=== PATIENT | male | born 1975 | race Caucasian/White ===

== ENCOUNTER 2022-05-19 06:58 | Outpatient (CLI) | payer OTHER, SELFPAY ==
--- NOTE | ~2022-05-19 | MR_ITS ---
EXAMINATION: MR brain/brain stem wo/w con DATE: 05/19/2022 09:00 INDICATION: Sided headaches TECHNIQUE: Magnetic resonance imaging (MRI) of the brain and brainstem was performed without and with 18 mL Multihance intravenous contrast. Sequences included sagittal and axial T1-weighted SE, axial d iffusion-weighted FS SE, axial T2*-weighted GRE, axial 3D SWAN, axial T2-weighted FLAIR, and axial T2 -weighted FSE. Postcontrast axial and coronal T1-weighted SE was obtained. Apparent diffusion coeffic ient (ADC) maps were created. COMPARISON: None. FINDINGS: There are no areas of restricted diffusion to suggest acute infarction. No intracranial hemorrhage or abnormal intracranial mass lesion. Single focus of increased white matter T2 hyperintensity in the r ight frontal lobe which is within normal limits for age. There are no intraparenchymal signal abnorma lities seen on the other pulse sequences. The ventricles are symmetric and normal in size. There are no abnormal extra-axial fluid collections. Flow voids are seen in the cerebral arteries on the T2-deena ghted sequences consistent with their expected patency. Visualized orbits and soft tissues are unrema rkable. There are no areas of abnormal enhancement on the post contrast images. IMPRESSION: 1. Single focus of nonspecific increased white matter T2 signal in the right frontal lobe which is wi thin normal limits for age. No acute intracranial process. Reviewed, dictated and finalized at location A. IMPRESSION: 1. Single focus of nonspecific increased white matter T2 signal in the right fr ontal lobe which is within normal limits for age. No acute intracranial process .
[2022-05-19 07:29] LABS: Estimated Glomerular Filt Rate > 60
== END 2022-05-19 06:59 | disposition home or self-care (01) ==
LOC: CHSIMG 07:03
PROVIDERS: PCP Physician Assistant
DX: R51.9 Headache, unspecified (principal)
CPT/HCPCS: 70553; A9577

== ENCOUNTER 2022-10-07 21:29 | Emergency (ER) | payer OTHER, SELFPAY ==
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
[2022-10-07 21:30] VITALS: BP 153/81; PULSE 98; RESP 18; TEMP 36.3; O2SAT 97
[2022-10-07 21:41] LABS: Glucose Point of Care 130 mg/dl (65-105)
--- NOTE | 2022-10-07 21:58 | ECG_ITS ---
Measurements Intervals [place] Rate: 100 P: 22 SD: 155 QRS: 74 QRSD: 114 T: 49 QT: 347 QTc: 449 Interpretive Statements SINUS TACHYCARDIA INCOMPLETE RIGHT BUNDLE BRANCH BLOCK [90+ ms QRS DURATION, TERMINAL R IN V1/V2, 40+ ms S IN I/aVL/V4/V5/V6] NONSPECIFIC ST CHANGES NO PREVIOUS ECG AVAILABLE FOR COMPARISON Electronically Signed On 10-08-2022 20:07:03 [facility]NER by Ines Presley M.D.
[2022-10-07 22:32] LABS: Basophils Absolute Auto 0.12 K/mm3 (0.00-0.10); Basophils Percent Auto 0.8 % (0.0-1.0); Eosinophils Absolute Auto 0.28 K/mm3 (0.02-0.50); Hematocrit 51.5 % (40.0-54.0); Hemoglobin 17.3 g/dL (14.0-18.0); Immature Granulocyte Absolute 0.17 K/mm3 (0.00-0.00); Immature Granulocyte Percent A 1.2 % (0.0-0.0); Lymphocytes Absolute Auto 3.36 K/mm3 (1.10-4.50); Lymphocytes Percent Auto 23.7 % (18.0-42.0); Mean Corpuscular HGB Conc 33.6 g/dL (32.0-36.0); Mean Corpuscular Volume 95.2 fL (78.0-102.0); Mean Platelet Volume 9.6 fl (8.7-11.0); Monocytes Percent Auto 4.9 % (2.0-11.0); Neutrophils Absolute Auto 9.6 K/mm3 (1.7-7.2); Neutrophils Percent Auto 67.4 % (50.0-70.0); Platelet Count Result 346 K/mm3 (150-420); Red Blood Count 5.41 M/mm3 (4.70-6.10); Red Cell Distribution Width 12.7 % (11.6-14.4); White Blood Count 14.2 K/mm3 (4.8-10.8)
[2022-10-07 22:36] LABS: Add Urine Microscopic? YES; Appearance Urine Clear (Clear); Bilirubin Urine Negative (Negative); Blood Urine Trace-Intact (Negative); Color Urine Light Yellow (Yellow); Glucose Urine UA Negative (Negative); Ketones Urine Negative (Negative); Leukocyte Esterase Ur Negative (Negative); Nitrate Urine Negative (Negative); Protein Urine Negative (Negative); Specific Grav Ur <= 1.005 (1.010-1.020); Urobilinogen Urine 0.2 mg/dL (0.2-1.0)
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
[2022-10-07 22:41] LABS: Bacteria Urine Trace /hpf; RBC Urine 0-2 /hpf (0-2); Squamous Epithelial Cell Urine Few /hpf (Few); WBC Urine 0-3 /hpf (0-3)
[2022-10-07 22:43] LABS: Amphetamine Screen Urine Negative (Negative); Barbiturate Screen Urine Negative (Negative); Benzodiazepines Screen Urine Negative (Negative); Cannabinoid Screen Urine Positive (Negative); Cocaine Screen Urine Negative (Negative); Methadone Screen Urine Negative (Negative); Opiate Screen Urine Negative (Negative); Phencyclidine Screen Urine Negative (Negative)
[2022-10-07 22:56] LABS: Alanine Aminotransferase 29 U/L (16-63); Albumin Level 4.5 g/dL (3.4-5.0); Alkaline Phosphatase 82 U/L (46-116); Anion Gap 9 mmol/L (8-16); Aspartate Amino Transferase 24 U/L (15-37); Bilirubin,Total 0.2 mg/dL (0.00-1.00); Blood Urea Nitrogen 15 mg/dL (7-18); Calcium 9.7 mg/dL (8.5-10.1); Carbon Dioxide 29 mmol/L (21-32); Chloride 103 mmol/L (98-108); Estimated CRCL calculation 73 ml/min; Estimated Glomerular Filt Rate > 60; Glucose 116 mg/dL (70-99); Osmolality Calculated 293 mOsm/kg (285-295); Potassium 3.6 mmol/L (3.5-5.1); Sodium 141 mmol/L (136-145); Total Protein 8.8 g/dL (6.4-8.2); Troponin I 7.1 ng/L (0.00-60.4)
[2022-10-07 23:06] LABS: Ethanol 338 mg/dL (0-6)
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
[2022-10-07 23:29] LABS: Lactic Acid Reflex 2.1 mmol/L (0.4-2.0)
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
[2022-10-08 01:29] LABS: Reflex Lactic Acid Yes or No Add Lactic
== END 2022-10-07 22:54 | disposition left against medical advice (07) ==
PROVIDERS: Emergency Provider Emergency Medicine; PCP Physician Assistant
DX: R78.0 Finding of alcohol in blood (principal); V89.2XXA Person injured in unspecified motor-vehicle accident, traffic, initial encounter
CPT/HCPCS: 36415; 70450; 71250; 74176; 80053; 80307; 81001; 82948; 83605; 84484; 85025; 93005; 99284

== ENCOUNTER 2024-03-08 | Observation (INO) | payer OTHER, SELFPAY ==
[2024-03-07 23:58] VITALS: BP 108/79; PULSE 71; RESP 12; O2SAT 99
[2024-03-08] VITALS (23 sets, daily range): BP systolic 92–136; BP diastolic 48–93; PULSE 66–86; RESP 16–26; TEMP 36.2–36.6; O2SAT 94–100; BMI 27.7
--- NOTE | ~2024-03-08 | MR_ITS ---
MRI of the brain Clinical History: Tremor Technique: Axial and sagittal T1-weighted images were acquired. These were followed by axial T2-weigh chela, diffusion weighted, gradient, and FLAIR images. Following intravenous administration of 18 cc Mu ltiHance gadolinium, T1-weighted fat-sat imaging was performed in the axial and coronal planes. COMPARISON: 05/19/2022 Findings: There is no abnormal signal in the brain parenchyma. No acute infarct, intracranial hemorrh age, or mass lesion. Ventricles and subarachnoid spaces are unremarkable. Orbits are unremarkable. Paranasal sinuses and m astoid air cells are clear. Major intracranial flow voids are intact. Sagittal midline structures are intact. No abnormal postcontrast enhancement identified. IMPRESSION: No significant abnormality seen. Reviewed, dictated and finalized at location .
--- NOTE | ~2024-03-08 | CT_ITS ---
CT of the Abdomen and Pelvis: Indication: Abdominal distention Technique: 2.5 mm axial scans were obtained through the abdomen and pelvis following intravenous adm inistration of 100 cc of Omnipaque 350. Dose reduction technique was used on this scan by utilizing a utomated exposure control and iterative reconstruction technique. The dose-length product (DLP) was 1 633.22 mGy-cm. COMPARISON: 10/07/2022 Findings: Scans through the lung bases are unremarkable. The liver, spleen, pancreas, gallbladder, adrenals and left kidney are within normal limits. Stable f at-containing right renal mass, compatible with angiomyolipoma, measuring 3.8 cm in diameter. There a re atherosclerotic calcifications of the aorta. No lymphadenopathy. No bowel obstruction or bowel wall thickening. There is no evidence to suggest acute appendicitis. Sm all fat-containing umbilical hernia present. Images through the pelvis were performed. Urinary bladder unremarkable. No pelvic mass seen. No ascit es. Impression: No acute abnormality. Small fat-containing inguinal hernia. Stable right renal angiomyolipoma. Reviewed, dictated and finalized at [facility]. Impression: No acute abnormality. Small fat-containing inguinal hernia. Stable right renal angiomyolipoma.
--- NOTE | ~2024-03-08 | CT_ITS ---
Noncontrast CT scan of the cervical spine Technique: Multiple contiguous axial [address] images of the cervical spine were obtained and rec onstructed in 2D sagittal and coronal planes on the acquisition scanner. Dose reduction technique was used on this scan by utilizing automated exposure control, adjustment of the mA and/or kV according to patient size. The dose-length product (DLP) was 517.22 mGy-cm. Clinical History: Pain Findings: No fractures or dislocations. There is straightening of normal cervical lordosis. There is advanced degenerative disc narrowing at C6-C7. There is mild to moderate degenerative disc narrowing at the remainder of the cervical spine. Probable mild bilateral neural foraminal narrowing at C3-C4 with mild facet arthropathy bilaterally. There is bilateral neural foraminal narrowing at C5-C6. Ther e is right neural foraminal narrowing at C6-C7. No prevertebral soft tissue swelling. Impression: No fracture or subluxation of the cervical spine. Degenerative change, as above. Reviewed, dictated and finalized at [facility]. Impression: No fracture or subluxation of the cervical spine. Degenerative change, as above.
--- NOTE | ~2024-03-08 | CT_ITS ---
Non-contrast Head CT History: Tremor COMPARISON: 10/07/2022 Technique: Axial non-contrast imaging of the brain was performed. Dose reduction technique was used on this scan by utilizing automated exposure control and iterative reconstruction technique. The dose -length product (DLP) was 605.33 mGy-cm. Findings: There is no evidence of intracranial hemorrhage, mass lesion, or acute infarct. Brain par enchyma appears normal. The ventricles and subarachnoid spaces are normal in size. The calvarium ap pears normal. The visualized paranasal sinuses and mastoid air cells are clear. Impression: No significant abnormality seen. Reviewed, dictated and finalized at location . Impression: No significant abnormality seen.
--- NOTE | ~2024-03-08 | CT_ITS ---
Noncontrast CT scan of the thoracic spine CLINICAL HISTORY: Lower extremity weakness TECHNIQUE: Axial noncontrast imaging of the thoracic spine was performed. Sagittal and coronal reform atted images were constructed. Dose reduction technique was used on this scan by utilizing automated exposure control and iterative reconstruction technique. The dose-length product (DLP) was 1536.21 mG y-cm. FINDINGS: There is no fracture or subluxation of the thoracic spine. Vertebral bodies maintain normal height and alignment. There is moderate to advanced degenerative disc narrowing at T10-T11 and T11-T 12. There is minimal degenerative disc changes in the remainder of the thoracic spine. No definite disc bulge or herniation seen. No definite spinal canal stenosis/cord compression. Paravertebral soft tissues are unremarkable. Impression: No acute abnormality. Mild degenerative spondylosis, as above. Reviewed, dictated and finalized at [facility]. Impression: No acute abnormality. Mild degenerative spondylosis, as above.
--- NOTE | ~2024-03-08 | XR_ITS ---
Portable chest x-ray Comparison: None Clinical History: Tremor Findings: Lungs are clear, without focal consolidation or pleural effusion. Cardiomediastinal silho uette is unremarkable. Bones and soft tissues are unremarkable. Impression: Normal chest. Reviewed, dictated and finalized at location M. Impression: Normal chest.
--- NOTE | 2024-03-08 00:03 | ECG_ITS ---
SEE SCANNED COPY FOR CONFIRMED REPORT MTDD
[2024-03-08 00:11] LABS: Glucose Point of Care 127 mg/dl (65-105)
[2024-03-08 00:20] LABS: Basophils Absolute Auto 0.1 K/mm3 (0.0-0.1); Eosinophils Absolute Auto 0.7 K/mm3 (0-0.3); Eosinophils Percent Auto 6.8 % (0-4.4); Hematocrit 38.1 % (42.0-52.0); Hemoglobin 12.5 g/dL (14.0-18.0); Immature Granulocyte Absolute 0.12 K/mm3 (0.00-0.031); Immature Granulocyte Percent A 1.1 % (0-0.5); Lymphocytes Absolute Auto 2.35 K/mm3 (0.9-3.2); Lymphocytes Percent Auto 21.8 % (18.3-44.2); Mean Corpuscular HGB Conc 32.8 g/dl (32-36); Mean Corpuscular Hemoglobin 27.5 pg (26-34); Mean Corpuscular Volume 83.9 fl (80-100); Mean Platelet Volume 9.4 fl (7.4-10.4); Monocytes Absolute Auto 0.9 K/mm3 (0.1-0.6); Monocytes Percent Auto 8.3 % (2.6-8.5); Neutrophils Absolute Auto 6.6 K/mm3 (1.3-6.7); Platelet Count Result 294 k/mm3 (150-375); Red Blood Count 4.54 M/mm3 (4.6-6.20); Red Cell Distribution Width 14.6 % (11.5-14.5); White Blood Count 10.8 K/mm3 (4.5-10.0)
[2024-03-08 00:30] LABS: INR 0.9
[2024-03-08 00:32] LABS: Partial Thromboplastin Time 28.7 Seconds (22.3-36.8)
[2024-03-08 00:33] LABS: Alanine Aminotransferase 22 U/L (6-50); Albumin Level 4.2 g/dL (3.5-5.1); Alkaline Phosphatase 83 U/L (38-126); Anion Gap 7 mmol/L (4-12); Aspartate Amino Transferase 56 U/L (17-59); Bilirubin,Total 0.5 mg/dL (0.2-1.3); Blood Urea Nitrogen 22 mg/dL (9-20); Calcium 9.6 mg/dL (8.4-10.2); Carbon Dioxide 26 mmol/L (22-30); Chloride 103 mmol/L (98-107); Estimated CRCL calculation 84 ml/min; Estimated Glomerular Filt Rate > 60; Glucose 109 mg/dL (65-110); Potassium 4.4 mmol/L (3.4-5.0); Sodium 136 mmol/L (137-145)
[2024-03-08 00:40] LABS: Troponin I < 0.012 ng/mL (0.000-0.034)
[2024-03-08 00:51] LABS: Creatine Kinase 1427 U/L (55-170); Lipase 85 U/L (23-300); Phosphorus 4.6 mg/dL (2.5-4.5)
[2024-03-08] MEDS: SODIUM CHLORIDE 0.9% IV 1,000 ML 999 ML IV CONT (00:55)
[2024-03-08 01:04] LABS: Ethanol < 10 mg/dL (<10)
[2024-03-08 02:04] LABS: Appearance Urine Clear (Clear); Bilirubin Urine Negative (Negative); Blood Urine Negative (Negative); Color Urine Yellow (Yellow); Glucose Urine UA Negative (Negative); Ketones Urine Negative (Negative); Leukocyte Esterase Ur Negative LEU/UL (Negative); Nitrate Urine Negative (Negative); Protein Urine Negative (Negative); Specific Grav Ur 1.021 (1.001-1.035); Urobilinogen Urine 0.2 mg/dL (<2.0); pH Urine 5.5 (5.0-9.0)
[2024-03-08 02:05] LABS: Add Urine Microscopic? NO
[2024-03-08 02:16] LABS: Lactic Acid Reflex 1.6 mmol/L (0.7-2.0)
[2024-03-08 02:22] LABS: Amphetamine Screen Urine Negative (Negative); Barbiturate Screen Urine Negative (Negative); Benzodiazepines Screen Urine Negative (Negative); Cannabinoid Screen Urine Negative (Negative); Cocaine Screen Urine Negative (Negative); Methadone Screen Urine Negative (Negative); Opiate Screen Urine Negative (Negative); Phencyclidine Screen Urine Negative (Negative)
[2024-03-08 02:30] LABS: Ammonia < 9 umol/L (9-30)
[2024-03-08 02:34] LABS: Influenza A QL RT-PCR Negative (Negative); Influenza B QL RT-PCR Negative (Negative); RSV RNA, RT-PCR Negative (Negative); SARS-CoV-2 RNA PCR Negative (Negative)
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
--- NOTE | 2024-03-08 04:17 | PC.NURSE ---
[place] poison control called at the request of EDP Dr. Scott. Per [place] poison control s/s of Seroquel withdraw are N/V, insomnia, tachycardia, and rare signs dyskenisa.
[2024-03-08 05:21] LABS: Folic Acid 5.2 ng/mL (2.76->20)
[2024-03-08] MEDS: LACTATED RINGERS 1,000 ML 125 ML IV CONT ×2 (06:14→15:12)
--- NOTE | 2024-03-08 07:01 | ADMGEN ---
This patient, Gerardo Sarmiento, was admitted to [facility] Surg Room 315-02. Patient/family oriented to hospital policies and general routines including ID bracelet, bed and alarms, visiting hours, pain management, procedures, bathroom and other care routines, personal items, smoking policy, room service/diet, and visiting hours. Information on how to activate the Rapid Response Team has been discussed. Patient/Family are encouraged to report perceived risks to care and to ask questions if they do not understand what they are told or what they should do.
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
[2024-03-08] MEDS: CALCIUM CARBONATE (TUMS) 500 MG (200 MG ELEMENTAL) 400 MG PO (21:55)
[2024-03-09] VITALS (11 sets, daily range): BP systolic 98–157; BP diastolic 80–106; PULSE 72–105; RESP 16–17; TEMP 36.3–36.6; O2SAT 92–96
[2024-03-09 06:37] LABS: Basophils Absolute Auto 0.1 K/mm3 (0.0-0.1); Basophils Percent Auto 1.1 % (0.2-1.2); Eosinophils Absolute Auto 0.6 K/mm3 (0-0.3); Eosinophils Percent Auto 8.5 % (0-4.4); Hematocrit 37.5 % (42.0-52.0); Hemoglobin 12.3 g/dL (14.0-18.0); Immature Granulocyte Absolute 0.08 K/mm3 (0.00-0.031); Immature Granulocyte Percent A 1.1 % (0-0.5); Lymphocytes Absolute Auto 2.07 K/mm3 (0.9-3.2); Lymphocytes Percent Auto 27.9 % (18.3-44.2); Mean Corpuscular HGB Conc 32.8 g/dl (32-36); Mean Corpuscular Hemoglobin 27.3 pg (26-34); Mean Corpuscular Volume 83.3 fl (80-100); Mean Platelet Volume 9.3 fl (7.4-10.4); Monocytes Absolute Auto 0.6 K/mm3 (0.1-0.6); Monocytes Percent Auto 8.5 % (2.6-8.5); Neutrophils Absolute Auto 3.9 K/mm3 (1.3-6.7); Neutrophils Percent Auto 52.9 % (45.5-73.1); Platelet Count Result 258 k/mm3 (150-375); Red Cell Distribution Width 14.3 % (11.5-14.5); White Blood Count 7.4 K/mm3 (4.5-10.0)
[2024-03-09 06:46] LABS: Alanine Aminotransferase 21 U/L (6-50); Albumin Level 4.1 g/dL (3.5-5.1); Alkaline Phosphatase 95 U/L (38-126); Anion Gap 6 mmol/L (4-12); Aspartate Amino Transferase 40 U/L (17-59); Bilirubin,Total 0.5 mg/dL (0.2-1.3); Blood Urea Nitrogen 17 mg/dL (9-20); Calcium 9.9 mg/dL (8.4-10.2); Carbon Dioxide 26 mmol/L (22-30); Chloride 104 mmol/L (98-107); Creatine Kinase 709 U/L (55-170); Estimated CRCL calculation 84 ml/min; Estimated Glomerular Filt Rate > 60; Glucose 87 mg/dL (65-110); Magnesium 1.9 mg/dL (1.6-2.3); Potassium 3.9 mmol/L (3.4-5.0); Sodium 136 mmol/L (137-145)
[2024-03-09] MEDS: PANTOPRAZOLE 40 MG TABLET PO (08:26)
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
--- NOTE | 2024-03-09 15:00 | PM.DS ---
DS: Admitting Diagnosis Discharge Date March 09, 2024 Admitting Diagnosis Tremor DS: Discharge Diagnosis Discharge Diagnosis (1) Weakness: Code(s): R53.1 - Weakness Status: Acute (2) Tremor: Code(s): R25.1 - Tremor, unspecified Status: Acute (3) Orthostatic hypotension: Code(s): I95.1 - Orthostatic hypotension Status: Acute DS: Summary Hospital Course Hospital Course: 48-year-old male with a history of alcohol abuse now sober for 11 months, hypertension, insomnia presents for evaluation of tremor. Patient reports that has been there for some time but got much worse in the past few weeks. Became so bad he could not walk and therefore EMS was called. He was provided IV fluid resuscitation and his tremor resolved. Orthostatic blood pressures even after fluid resuscitation were positive. Abdominal binder was placed his orthostatic vitals were subsequently normal. Patient is discharged on abdominal binder and is advised that a waist high compression stockings can also be used. He has been educated on the Behavioral modifications he can take prevent orthostatic hypotension. His metoprolol succinate for hypertension was stopped. He is advised to take his blood pressures and report to his PCP results for further management. He is advised if his blood pressure is elevated too high to contact the ER or his PCP. There was a small concern for serotonin syndrome although this is likely not the case. None the less trazodone was also stopped. He also takes gabapentin and amitriptyline and recently stopped taking Seroquel 5 days ago. An MRI of the brain was negative for any acute abnormalities. All of his concerns and questions were answered to satisfaction. Was in understanding agreement to the above plan. Full code during admission. Time Spent with Patient Time attestation: Total time spent providing and/or coordinating discharge services: Exam Const: General: cooperative and no acute distress Resp: Effort & Inspection: normal respiratory effort Auscultation: clear to auscultation bilaterally Cardio: Rate: regular rate Rhythm: regular rhythm Heart sounds: S1 normal heart sound present and S2 normal heart sound present GI: GI Palp: No abdominal tenderness Auscultation: normal bowel sounds DS: Data Data Completed and Pending Labs on day of discharge: Labs from last 24 hours 03/09/24 06:11 WBC 7.4 RBC 4.50 L Hgb 12.3 L Hct 37.5 L MCV 83.3 MCH 27.3 MCHC 32.8 RDW 14.3 Plt Count 258 MPV 9.3 Immature Gran % (Auto) 1.1 H Neut % (Auto) 52.9 Lymph % (Auto) 27.9 [place] % (Auto) 8.5 Eos % (Auto) 8.5 H Baso % (Auto) 1.1 Lymph # (Auto) 2.07 [place] # (Auto) 0.6 Eos # (Auto) 0.6 H Baso # (Auto) 0.1 Abs Immat Gran (auto) 0.08 H Absolute Neuts (auto) 3.9 Absolute Nucleated RBC 0.000 Nucleated RBC % 0.0 Sodium 136 L Potassium 3.9 Chloride 104 Carbon Dioxide 26 Anion Gap 6 BUN 17 Creatinine 1.00 Estim Creat Clear Calc 84 Estimated GFR > 60 Glucose 87 Calcium 9.9 Magnesium 1.9 Total Bilirubin 0.5 AST 40 ALT 21 Alkaline Phosphatase 95 Total Creatine Kinase 709 H Total Protein 7.0 Albumin 4.1 Procalcitonin 0.0 Preliminary micro results at discharge 03/08/24 02:10 Blood Culture - Preliminary Blood 03/08/24 01:34 Blood Culture - Preliminary Blood Discharge Plan Discharge Attending physician on discharge: Alesia Tello Consulting providers: Huber Daly Discharging Clinician: Alesia Tello Patient Disposition: Home, Self-Care Activity: may shower Diet: as tolerated Discharge Instructions: Continue using the abdominal binder. Continue to monitor your blood pressure and report high pressures to your primary care provider. Return to primary care provider within 1 week to follow-up on blood pressure, orthostatic hypotension, and other issues. Patient Instructions: Antibiotic Form, How to Sto
== END 2024-03-09 15:35 | disposition home or self-care (01) ==
LOC: ANHED 06:01 → ANH3MEDSUR 06:56
PROVIDERS: Admitting Provider Internal Medicine; Emergency Provider Emergency Medicine; PCP Physician Assistant; Visit Provider General Practice
DX: R25.1 Tremor, unspecified (principal); I95.1 Orthostatic hypotension; R53.1 Weakness; I10 Essential (primary) hypertension; G47.00 Insomnia, unspecified; F17.210 Nicotine dependence, cigarettes, uncomplicated; Z20.822 Contact with and (suspected) exposure to COVID-19
CPT/HCPCS: 36415; 70450; 70553; 71045; 72125; 72128; 74177; 80053; 80307; 81003; 82140; 82550; 82607; 82746; 82948; 83605; 83690; 83735; 84100; 84145; 84484; 85025; 85610; 85730; 87040; 87637; 93005; 96360; 96361; 97161; 97165; 99285; A9270; A9577; G0378; J7030; J7120; Q9967

== ENCOUNTER 2024-09-19 19:00 | Observation (INO) | payer OTHER, SELFPAY ==
--- NOTE | ~2024-09-19 | CT_ITS ---
EXAMINATION: CTA chest PE abdomen pel DATE: 09/19/2024 23:36 INDICATION: shortness of breath, low BP TECHNIQUE: Computed tomography angiography (CTA) of the chest was performed with 100 mL Omnipaque-350 intravenous contrast timed to evaluate the pulmonary arteries, followed by portal venous phase imagi ng of the abdomen and pelvis. Coronal maximum intensity projection 3D-reconstructions were created by the technologist. The dose-length product (DLP) was 895.24 mGy-cm. Automated exposure control and it erative reconstruction technique were employed. COMPARISON: 03/08/2024 10 10/07/2022. FINDINGS: CHEST: Lung parenchyma and airways: Scattered calcified granulomas. Fissural node in the left major fissure. Minimal scattered centrilobular nodular groundglass opacities. Patent airways. Pleura: Unremarkable. Thoracic inlet, axillae and chest wall: No thyroid or soft tissue mass. Thoracic aorta: No significant dilation. No dissection. Mediastinum: Moderate hiatal hernia. Heart and pericardium: Normal. Coronary artery calcifications: Mild. Thoracic bones: No acute osseous finding. Pulmonary arteries: Study quality: Adequate. No pulmonary emboli detected. ABDOMEN/PELVIS: Liver: Normal. Biliary/Gallbladder: Gallbladder is normal. No bile duct dilation. Pancreas: No mass or duct dilation. Spleen: Normal. Adrenals:No mass. Kidneys: 4.1 cm right renal angiomyolipoma. No suspicious mass, obstructing stone, or hydronephrosis. GI tract: No small or large bowel dilation. Normal appendix. Diverticulosis without diverticulitis. Mesentery/Peritoneum: No ascites, mass, or free air. Retroperitoneum: No mass. Pelvis: Unremarkable urinary bladder. Mild prostate enlargement. Slight asymmetry of the left seminal vesicle, stable since 2016. Soft Tissues: Small uncomplicated fat-containing umbilical and bilateral inguinal hernias. Abdominopelvic bones: No acute osseous finding. IMPRESSION: No CT evidence of acute pulmonary embolus. Pulmonary opacities may reflect mild hypersensitivity pneumonitis, respiratory bronchiolitis in smoke rs, or infectious airways disease. No acute abdominopelvic process detected. 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 No significant interval change or evidence of active hemorrhage. G iven the size and risk of spontaneous hemorrhage, consider urologic consultation if not already perfo rmed. Reviewed, dictated and finalized at location [facility] IMPRESSION: No CT evidence of acute pulmonary embolus. Pulmonary opacities may reflect mild hypersensitivity pneumonitis, respiratory bronchiolitis in smokers, or infectious airways disease. No acute abdominopelvic process detected. 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 No significant interval change or evidence o f active hemorrhage. Given the size and risk of spontaneous hemorrhage, conside r urologic consultation if not already performed.
[2024-09-19 19:03] VITALS: PULSE 67; RESP 22; TEMP 36.4; O2SAT 99
[2024-09-19] MEDS: ONDANSETRON HCL ODT 4 MG TABLET PO (19:12)
[2024-09-19 19:13] VITALS: BP 104/68
--- NOTE | 2024-09-19 19:15 | ECG_ITS ---
Test Date: 2024-09-19 20:15:39 Measurements Intervals [place] Rate: 128 P: 230 MI: 200 QRS: 236 QRSD: 102 T: 63 QT: 356 QTc: 521 Interpretive Statements SINUS TACHYCARDIA RIGHT AXIS DEVIATION DELAYED PRECORDIAL R/S TRANSITION BASELINE ARTIFACT- I, II, III, AVR, AVL, AVF, V4-V6 ABNORMAL ECG No previous ECG available for comparison Electronically Signed On 09-20-2024 06:10:52 [employer] by Blade Chin D.O.
--- NOTE | 2024-09-19 19:17 | ED.SOB ---
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 Beckham APRN - Last Filed: 09/19/24 19:23> Patient Disposition: Still a Patient <America Beckham APRN - Last Filed: 09/19/24 19:23> Condition: Improved <America Beckham APRN - Last Filed: 09/19/24 19:23> Prescriptions: No Action amitriptyline 50 mg tablet 100 mg PO HS trazodone 100 mg tablet 200 mg PO DAILY Hold Instructions: Hold this for now. Interaction with amitriptyline. Discussed use of this with your primary care provider. gabapentin 300 mg capsule 300 mg PO TID metoprolol succinate 100 mg tablet extended release 24 hr 150 mg PO DAILY Hold Instructions: Hold this for now. This medication can cause orthostatic hypotension which you were observed to have in the hospital. <America Beckham APRN - Last Filed: 09/19/24 19:23> Follow-up/Referrals: Jill,MELISSA Moody [Primary Care Provider] - <America Beckham, TIM - Last Filed: 09/19/24 19:23>
[2024-09-19 20:41] LABS: Albumin Level 5.6 g/dL (3.5-5.1); Alkaline Phosphatase 129 U/L (38-126); Anion Gap 24 mmol/L (4-12); Aspartate Amino Transferase 39 U/L (17-59); Bilirubin,Total 1.6 mg/dL (0.2-1.3); Blood Urea Nitrogen 37 mg/dL (9-20); Calcium 11.1 mg/dL (8.4-10.2); Carbon Dioxide 23 mmol/L (22-30); Chloride 90 mmol/L (98-107); Estimated CRCL calculation 52 ml/min; Estimated Glomerular Filt Rate 46; Glucose 100 mg/dL (65-110); Magnesium 1.9 mg/dL (1.6-2.3); Sodium 137 mmol/L (137-145)
[2024-09-19 20:45] LABS: Alanine Aminotransferase 26 U/L (6-50)
[2024-09-19 20:48] LABS: Glucose Point of Care 118 mg/dl (65-105)
[2024-09-19 20:49] LABS: NT Pro B Type Natriuretic Pept 320 pg/mL (19.9-100); Troponin I < 0.012 ng/mL (0.000-0.034)
[2024-09-19 21:19] LABS: Influenza A QL RT-PCR Negative (Negative); Influenza B QL RT-PCR Negative (Negative); RSV RNA, RT-PCR Negative (Negative); SARS-CoV-2 RNA PCR Negative (Negative)
--- NOTE | 2024-09-19 22:50 | PC.NURSE ---
pt given po zofran earlier in er. immediate emesis, so zofran did not stay down.
[2024-09-19] MEDS: SODIUM CHLORIDE 0.9% IV 1,000 ML 999 ML IV CONT (22:56)
[2024-09-19] MEDS: ONDANSETRON INJ 4 MG/2 ML VIAL (22:57)
[2024-09-19 23:00] LABS: Basophils Absolute Auto 0.1 K/mm3 (0.0-0.1); Basophils Percent Auto 0.7 % (0.2-1.2); Eosinophils Absolute Auto 0.1 K/mm3 (0-0.3); Eosinophils Percent Auto 0.6 % (0-4.4); Hematocrit 44.9 % (42.0-52.0); Hemoglobin 15.6 g/dL (14.0-18.0); Immature Granulocyte Absolute 0.22 K/mm3 (0.00-0.031); Immature Granulocyte Percent A 1.2 % (0-0.5); Lymphocytes Absolute Auto 2.71 K/mm3 (0.9-3.2); Lymphocytes Percent Auto 15.3 % (18.3-44.2); Mean Corpuscular HGB Conc 34.7 g/dl (32-36); Mean Corpuscular Hemoglobin 27.9 pg (26-34); Mean Corpuscular Volume 80.2 fl (80-100); Mean Platelet Volume 9.7 fl (7.4-10.4); Monocytes Absolute Auto 1.5 K/mm3 (0.1-0.6); Monocytes Percent Auto 8.4 % (2.6-8.5); Neutrophils Absolute Auto 13.1 K/mm3 (1.3-6.7); Neutrophils Percent Auto 73.8 % (45.5-73.1); Platelet Count Result 487 k/mm3 (150-375); Red Cell Distribution Width 12.9 % (11.5-14.5); White Blood Count 17.7 K/mm3 (4.5-10.0)
[2024-09-19 23:13] LABS: Partial Thromboplastin Time 25.7 Seconds (22.3-36.8); Prothrombin Time 13.3 Seconds (11.1-14.7)
[2024-09-19 23:24] LABS: Add Urine Microscopic? YES; Appearance Urine Clear (Clear); Bacteria Urine None Seen /hpf; Bilirubin Urine Negative (Negative); Blood Urine Negative (Negative); Color Urine Yellow (Yellow); Glucose Urine UA Negative (Negative); Hyaline Casts Urine Present /lpf; Ketones Urine 2+ mg/dL (Negative); Leukocyte Esterase Ur 1+ LEU/UL (Negative); Mucus Urine Present /lpf; Need Manual Microscopic Reviewed; Nitrate Urine Negative (Negative); Protein Urine 1+ mg/dL (Negative); RBC Urine 0-2 /hpf (0-2); Specific Grav Ur 1.026 (1.001-1.035); Squamous Epithelial Cell Urine None Seen /hpf (Few)
[2024-09-19 23:43] LABS: Lipase 484 U/L (23-300)
--- NOTE | 2024-09-19 23:55 | PC.NURSE ---
ativan 0.5mg abrahan toribio
[2024-09-20] VITALS (10 sets, daily range): BP systolic 110–133; BP diastolic 70–98; PULSE 84–107; RESP 16–27; TEMP 36.6–37.2; O2SAT 97–100; BMI 26.2
[2024-09-20] MEDS: POTASSIUM CHLORIDE 20 MEQ ER TABLET 40 MEQ PO (00:07)
[2024-09-20] MEDS: LORazepam INJ (*CRX) 2 MG/ML VIAL 0.5 MG IV PUSH (00:07)
[2024-09-20 00:30] LABS: Barbiturate Screen Urine Negative (Negative); Benzodiazepines Screen Urine Negative (Negative)
[2024-09-20 00:31] LABS: Cannabinoid Screen Urine Positive (Negative); Cocaine Screen Urine Negative (Negative); Methadone Screen Urine Negative (Negative); Opiate Screen Urine Negative (Negative); Phencyclidine Screen Urine Negative (Negative)
[2024-09-20 00:41] LABS: Creatine Kinase 103 U/L (55-170)
[2024-09-20 00:44] LABS: Amphetamine Screen Urine Negative (Negative)
[2024-09-20 00:44] LABS: Ethanol < 10 mg/dL (<10)
--- NOTE | 2024-09-20 01:29 | ECG_ITS ---
Test Date: 2024-09-20 01:52:36 Measurements Intervals [place] Rate: 101 P: 51 [place]: 138 QRS: 67 QRSD: 102 T: 64 QT: 381 QTc: 495 Interpretive Statements SINUS TACHYCARDIA BASELINE ARTIFACT- I, II, III, AVF BORDERLINE ECG Compared to ECG 09/19/2024 20:15:39 HEART RATE HAS DECREASED Right-axis deviation no longer present Electronically Signed On 09-20-2024 06:23:21 [employer] [employer] by Blade Chin D.O.
[2024-09-20] MEDS: SODIUM CHLORIDE 0.9% IV 1,000 ML 999 ML IV CONT (01:55)
[2024-09-20] MEDS: SODIUM CHLORIDE 0.9% IV 500 ML 999 ML IV CONT (01:55)
[2024-09-20 01:58] LABS: Reflex Lactic Acid Yes or No Add Lactic
[2024-09-20] MEDS: LORazepam INJ (*CRX) 2 MG/ML VIAL 1 MG IV PUSH (02:07)
[2024-09-20 02:31] LABS: Alanine Aminotransferase 14 U/L (6-50); Albumin Level 3.3 g/dL (3.5-5.1); Alkaline Phosphatase 74 U/L (38-126); Anion Gap 8 mmol/L (4-12); Aspartate Amino Transferase 23 U/L (17-59); Bilirubin,Total 1.1 mg/dL (0.2-1.3); Blood Urea Nitrogen 31 mg/dL (9-20); Calcium 7.5 mg/dL (8.4-10.2); Carbon Dioxide 21 mmol/L (22-30); Chloride 104 mmol/L (98-107); Estimated CRCL calculation 68 ml/min; Estimated Glomerular Filt Rate > 60; Glucose 85 mg/dL (65-110); Potassium 2.7 mmol/L (3.4-5.0); Sodium 133 mmol/L (137-145)
--- NOTE | 2024-09-20 03:06 | PC.NURSE ---
Admission report provided to KATHERINE Daniel.
[2024-09-20] MEDS: POTASSIUM CHLORIDE INJ 40 MEQ in SODIUM CHLORIDE 0.9% IV 500 ML 130 MEQ IVPB (03:23)
[2024-09-20] MEDS: SODIUM CHLORIDE 0.9% IV 1,000 ML 150 ML IV CONT (03:23)
--- NOTE | 2024-09-20 03:24 | ADMGEN ---
This patient, Gerardo Sarmiento, was admitted to [facility] Room 330-01. Patient/family oriented to hospital policies and general routines including ID bracelet, bed and alarms, visiting hours, pain management, procedures, bathroom and other care routines, personal items, smoking policy, room service/diet, and visiting hours. Information on how to activate the Rapid Response Team has been discussed. Patient/Family are encouraged to report perceived risks to care and to ask questions if they do not understand what they are told or what they should do.
[2024-09-20 09:43] LABS: Anion Gap 4 mmol/L (4-12); Blood Urea Nitrogen 30 mg/dL (9-20); Calcium 8.2 mg/dL (8.4-10.2); Carbon Dioxide 28 mmol/L (22-30); Chloride 104 mmol/L (98-107); Estimated CRCL calculation 59 ml/min; Estimated Glomerular Filt Rate 54; Glucose 93 mg/dL (65-110); Phosphorus 3.4 mg/dL (2.5-4.5); Potassium 3.7 mmol/L (3.4-5.0); Sodium 136 mmol/L (137-145)
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
== END 2024-09-20 19:00 | disposition home or self-care (01) ==
LOC: ANHED 09-20 02:24 → ANH3MEDSUR 09-20 03:03
PROVIDERS: Registered Nurse; Admitting Provider Internal Medicine; Emergency Provider Physician Assistant; PCP Physician Assistant; Visit Provider Internal Medicine
DX: E86.0 Dehydration (principal); I95.1 Orthostatic hypotension; E87.1 Hypo-osmolality and hyponatremia; E87.6 Hypokalemia; N17.9 Acute kidney failure, unspecified; D17.71 Benign lipomatous neoplasm of kidney; R53.1 Weakness; Z87.891 Personal history of nicotine dependence; Z20.822 Contact with and (suspected) exposure to COVID-19; Z79.899 Other long term (current) drug therapy
CPT/HCPCS: 36415; 71275; 74177; 80048; 80053; 80307; 81001; 82077; 82550; 82948; 83605; 83690; 83735; 83880; 84100; 84484; 85025; 85610; 85730; 87040; 87086; 87637; 93005; 96360; 96361; 96374; 96376; 99285; A9270; G0378; J2060; J2405; J7030; J7040; Q9967

== ENCOUNTER 2025-08-08 17:55 | Observation (INO) | payer OTHER, SELFPAY ==
[2025-08-08] VITALS (23 sets, daily range): BP systolic 117–196; BP diastolic 80–120; PULSE 72–108; RESP 13–29; TEMP 36.1–36.7; O2SAT 95–100; BMI 28.4
--- NOTE | ~2025-08-08 | CT_ITS ---
REFERENCE: [None available.] TECHNIQUE: Axial 2.5 and 5 mm images of the head and neck were obtained without and with infusion of contrast dose cc of intravenous contrast. Postcontrast 1.25 mm axial images were then obtained. On an independent workstation, 0.625 mm axial images were utilized to render MIP and MPR images of the intracranial circulation. Evaluation is markedly limited due to motion artifact. CTA NECK: The aortic arch demonstrates normal caliber and patency. Normal branching pattern is noted of the supraaortic vessels. The origins of the supraaortic vessels are widely patent. The common carotid and cervical segments of the ICA and ECA demonstrate normal caliber and patency. The vertebral arteries are symmetric in size, demonstrating normal patency. CTA HEAD: The intracranial ICA, YOVANI, and MCA demonstrate normal caliber and patency. No hemodynamically significant stenosis or aneurysm is identified. The distal vertebral, basilar, and bilateral posterior cerebral arteries demonstrate normal caliber and patency. The superior cerebellar arteries are also widely patent. NONVASCULAR FINDINGS: The soft tissue of the neck is unremarkable. No mass or pathologic enhancement is noted. There is no pathologically enlarged lymphadenopathy. The airway is patent. No acute intracranial hemorrhage, mass, or extraaxial fluid collections are noted. Ventricular size is normal. The skull is intact. The visualized mastoid air cells and sinuses are clear. There is no pathologic enhancement. IMPRESSION: Severely limited study demonstrating no large vessel occlusion. Reviewed, dictated and finalized at location S.
--- NOTE | ~2025-08-08 | XR_ITS ---
EXAMINATION: XR chest 1V portable COMPARISON: No comparisons available. HISTORY: AMS FINDINGS: The lungs are clear, no effusion. No pneumothorax. Heart is normal size. Mediastinal and hilar contours are within normal limits. Bony thorax no acute abnormality. Miscellaneous: None Impression: No acute cardiopulmonary abnormality. Reviewed, dictated and finalized at location P. Impression: No acute cardiopulmonary abnormality.
--- NOTE | ~2025-08-08 | CT_ITS ---
CT brain wo con HISTORY:AMS, slurred speech COMPARISON: None. TECHNIQUE: Axial images were obtained of the head without intravenous contrast. FINDINGS: No acute intracranial hemorrhage, mass effect or midline shift. No extra-axial fluid collections. The calvarium is intact. Visualized paranasal sinuses and mastoid air cells are clear. IMPRESSION: No acute intracranial hemorrhage or extra axial fluid collections. All CT scans at this facility are performed using low dose modulation techniques as appropriate to perform exam including the following: automated exposure control; use of iterative reconstruction technique; adjustment of the mA and/or kV according to patient size (this includes techniques or standardized protocols for targeted exams where dose is matched to indication/reason for exam). Reviewed, dictated and finalized at location S. IMPRESSION: No acute intracranial hemorrhage or extra axial fluid collections. All CT scans at this facility are performed using low dose modulation techniqu es as appropriate to perform exam including the following: automated exposure c ontrol; use of iterative reconstruction technique; adjustment of the mA and/or kV according to patient size (this includes techniques or standardized protocol s for targeted exams where dose is matched to indication/reason for exam).
--- NOTE | 2025-08-08 18:04 | ECG_ITS ---
Test Date: 2025-08-08 18:08:05 Measurements Intervals [place] Rate: 101 P: -13 [place]: 156 QRS: 32 QRSD: 116 T: 10 QT: 272 QTc: 354 Interpretive Statements SINUS TACHYCARDIA DELAYED PRECORDIAL R/S TRANSITION MINIMAL Q WAVES- INFERIOR LEADS BORDERLINE ST-T WAVE ABNORMALITY- INFERIOR LEADS BORDERLINE ECG Compared to ECG 09/20/2024 01:52:36 NO SIGNIFICANT CHANGE Electronically Signed On 08-09-2025 05:15:39 CDT by Blade Chin D.O.
--- NOTE | 2025-08-08 18:05 | PC.NURSE ---
BS 143
--- NOTE | 2025-08-08 18:14 | PC.NURSE ---
MD Walker notified about patient LKN [id number]. patient having garbled speech and intermittent confusion. patient had similar episode about 2 weeks ago per family.
[2025-08-08 18:20] LABS: Hematocrit 39.2 % (42.0-52.0); Hemoglobin 12.6 g/dL (14.0-18.0); Immature Granulocyte Percent A 0.5 % (0-0.5); Lymphocytes Absolute Auto 2.24 K/mm3 (0.9-3.2); Mean Corpuscular HGB Conc 32.1 g/dl (32-36); Mean Corpuscular Hemoglobin 25.3 pg (26-34); Mean Corpuscular Volume 78.7 fl (80-100); Nucleated Red Blood Cells Absolute Auto 0.000 K/mm3 (0.0-0.012); Nucleated Red Blood Cells Perc 0.0 % (0.0-0.2); Platelet Count Result 270 k/mm3 (150-375); Red Blood Count 4.98 M/mm3 (4.6-6.20); White Blood Count 7.4 K/mm3 (4.5-10.0)
[2025-08-08 18:31] LABS: Alanine Aminotransferase 20 U/L (6-50); Albumin Level 4.6 g/dL (3.5-5.1); Alkaline Phosphatase 83 U/L (38-126); Anion Gap 12 mmol/L (4-12); Aspartate Amino Transferase 28 U/L (17-59); Bilirubin,Total 0.2 mg/dL (0.2-1.3); Blood Urea Nitrogen 21 mg/dL (9-20); Calcium 10.0 mg/dL (8.4-10.2); Carbon Dioxide 25 mmol/L (22-30); Chloride 102 mmol/L (98-107); Estimated CRCL calculation 66 ml/min; Estimated Glomerular Filt Rate > 60; Glucose 101 mg/dL (65-110); Potassium 3.8 mmol/L (3.4-5.0); Sodium 139 mmol/L (137-145); Total Protein 8.1 g/dL (6.3-8.2)
[2025-08-08 18:35] LABS: INR 1.0; Partial Thromboplastin Time 28.4 Seconds (22.3-36.8); Prothrombin Time 13.5 Seconds (11.1-14.7)
[2025-08-08 18:42] LABS: Troponin I < 0.012 ng/mL (0.000-0.034)
[2025-08-08] MEDS: THIAMINE HCL 200 MG/2 ML VIAL 100 MG IV PUSH (18:43)
[2025-08-08] MEDS: LACTATED RINGERS 1,000 ML 999 ML IV CONT (18:43)
--- NOTE | 2025-08-08 19:13 | ED_ITS ---
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 1.0 L (2-20) mg/dL Urine Opiates Screen Negative (Negative) Urine Methadone Screen Negative (Negative) Acetaminophen < 10 L (10-30) ug/mL Ur Barbiturates Screen Negative (Negative) Ur Phencyclidine Scrn Negative (Negative) Ur Amphetamine Screen Negative (Negative) U Benzodiazepines Scrn Negative (Negative) Urine Cocaine Screen Negative (Negative) U Cannabinoids Screen Positive A (Negative) Ethyl Alcohol < 10 (<10) mg/dL Imaging Data Attestation: I personally reviewed and interpreted this imaging study as follows: My impression: Impressions Head CT 08/08/25 18:30 IMPRESSION: No acute intracranial hemorrhage or extra axial fluid collections. All CT scans at this facility are performed using low dose modulation techniques as appropriate to perform exam including the following: automated exposure control; use of iterative reconstruction technique; adjustment of the mA and/or kV according to patient size (this includes techniques or standardized protocols for targeted exams where dose is matched to indication/reason for exam). Head/Neck CTA 08/08/25 18:48 IMPRESSION: Severely limited study demonstrating no large vessel occlusion. Discharge Plan Discharge Clinical Impression: Polypharmacy, Encephalopathy, Confusion Patient Disposition: Still a Patient Condition: Stable
[2025-08-08 19:24] LABS: Cannabinoid Screen Urine Positive (Negative)
--- NOTE | 2025-08-08 19:33 | PC.NURSE ---
spoke with jaleel in lab about add on tylenol, salicylate, uds.
[2025-08-08 19:37] LABS: Add Urine Microscopic? NO; Appearance Urine Clear (Clear); Glucose Urine UA Negative (Negative); Leukocyte Esterase Ur Negative LEU/UL (Negative); Nitrate Urine Negative (Negative); Specific Grav Ur 1.010 (1.001-1.035)
[2025-08-08 19:56] LABS: Acetaminophen < 10 ug/mL (10-30); Salicylate < 1.0 mg/dL (2-20)
--- NOTE | 2025-08-08 20:08 | PC.NURSE ---
pt having multiple episodes of incontinence.
--- NOTE | 2025-08-08 22:58 | ADMGEN ---
This patient, Gerardo Sarmiento, was admitted to [facility] Surg Room 324-02. Patient/family oriented to hospital policies and general routines including ID bracelet, bed and alarms, visiting hours, pain management, procedures, bathroom and other care routines, personal items, smoking policy, room service/diet, and visiting hours. Information on how to activate the Rapid Response Team has been discussed. Patient/Family are encouraged to report perceived risks to care and to ask questions if they do not understand what they are told or what they should do.
[2025-08-09] VITALS: PULSE 81
[2025-08-09] MEDS: MELATONIN 5 MG TABLET PO (03:42)
[2025-08-09] MEDS: CALCIUM CARBONATE (TUMS) 500 MG (200 MG ELEMENTAL) PO ×2 (03:42→11:57)
[2025-08-09 04:00] VITALS: PULSE 75
[2025-08-09 05:00] VITALS: BP 141/92; PULSE 75; RESP 18; TEMP 36.3; O2SAT 99
[2025-08-09 06:00] LABS: Hematocrit 40.1 % (42.0-52.0); Hemoglobin 13.1 g/dL (14.0-18.0); Mean Corpuscular HGB Conc 32.7 g/dl (32-36); Mean Corpuscular Hemoglobin 25.9 pg (26-34); Mean Corpuscular Volume 79.4 fl (80-100); Platelet Count Result 271 k/mm3 (150-375); Red Blood Count 5.05 M/mm3 (4.6-6.20); White Blood Count 8.0 K/mm3 (4.5-10.0)
[2025-08-09 06:24] LABS: Anion Gap 10 mmol/L (4-12); Blood Urea Nitrogen 18 mg/dL (9-20); Calcium 9.8 mg/dL (8.4-10.2); Carbon Dioxide 29 mmol/L (22-30); Chloride 101 mmol/L (98-107); Estimated CRCL calculation 61 ml/min; Estimated Glomerular Filt Rate 57; Glucose 89 mg/dL (65-110); Potassium 3.8 mmol/L (3.4-5.0); Sodium 140 mmol/L (137-145)
[2025-08-09 08:00] VITALS: PULSE 76
[2025-08-09 12:00] VITALS: PULSE 89
[2025-08-09] MEDS: PANTOPRAZOLE 40 MG TABLET PO (12:28)
[2025-08-09 14:00] VITALS: BP 131/96; PULSE 92; RESP 18; TEMP 36.6; O2SAT 100
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
--- NOTE | 2025-08-09 15:16 | PM.DS ---
DS: Admitting Diagnosis Discharge Date 08/09/25 Admitting Diagnosis AMS DS: Discharge Diagnosis Discharge Diagnosis (1) Confusion: Code(s): R41.0 - Disorientation, unspecified Status: Acute DS: Summary Hospital Course Hospital Course: 48-year-old male with a history of insomnia, hypertension, prior alcohol abuse who presented to the ER on account of AMS. Patient reported he presented to the ER on account on Generalized weakness especially in his lower extremities. Stated he knows it was his sleep meds and it has happened previously. Noted he has severe insomnia needing multiple medications for sleep. Otherwise denies any chest pain, SOB, abd pain, vomiting, diarrhea or dysuria. AT the time of this encounter patient was awake and oriented x3, and no focal deficits on exam ER eval notable for Vital signs ID 104, T 98.1, RR 22, BP 154/104 , repeat 131/90 Labs notable for UDA positive for Cannabinoids, Cr 1.32 which is baseline, otherwise mostly unremarkable CT head, CTA head and neck unremarkable. AMS resolved and this is most likely related to Polypharmacy Discussed with patient and stopped Trazodone and Buspirone Continue Seroquel and Amitriptyline Patient eating and ambulating at baseline Will continue close follow up with PCP in 3-5 days Time Spent with Patient Time attestation: Total time spent providing and/or coordinating discharge services: DS: Data Data Completed and Pending Labs on day of discharge: Labs from last 24 hours 08/09/25 08/08/25 08/08/25 05:44 18:47 18:13 WBC 8.0 RBC 5.05 Hgb 13.1 L Hct 40.1 L MCV 79.4 L MCH 25.9 L MCHC 32.7 RDW 13.0 Plt Count 271 MPV 9.3 Immature Gran % (Auto) Neut % (Auto) Lymph % (Auto) [place] % (Auto) Eos % (Auto) Baso % (Auto) Lymph # (Auto) [place] # (Auto) Eos # (Auto) Baso # (Auto) Abs Immat Gran (auto) Absolute Neuts (auto) Absolute Nucleated RBC Nucleated RBC % PT INR APTT Sodium 140 Potassium 3.8 Chloride 101 Carbon Dioxide 29 Anion Gap 10 BUN 18 Creatinine 1.32 H Estim Creat Clear Calc 61 Estimated GFR 57 L Glucose 89 POC Capillary Glucose Calcium 9.8 Total Bilirubin AST ALT Alkaline Phosphatase Troponin I Total Protein Albumin 4.6 Urine Color Yellow Urine Appearance Clear Urine pH 5.5 Ur Specific [place] 1.010 Urine Protein Negative Urine Glucose (UA) Negative Urine Ketones Negative Ur Blood (Man) Negative Urine Nitrate Negative Urine Bilirubin Negative Urine Urobilinogen 0.2 Leukocyte Esterase Rfl Negative Salicylates < 1.0 L Urine Opiates Screen Negative Urine Methadone Screen Negative Acetaminophen < 10 L Ur Barbiturates Screen Negative Ur Phencyclidine Scrn Negative Ur Amphetamine Screen Negative U Benzodiazepines Scrn Negative Urine Cocaine Screen Negative U Cannabinoids Screen Positive A Ethyl Alcohol < 10 08/08/25 08/08/25 08/08/25 18:13 18:13 18:13 WBC RBC Hgb Hct MCV MCH MCHC RDW Plt Count MPV Immature Gran % (Auto) Neut % (Auto) Lymph % (Auto) [place] % (Auto) Eos % (Auto) Baso % (Auto) Lymph # (Auto) [place] # (Auto) Eos # (Auto) Baso # (Auto) Abs Immat Gran (auto) Absolute Neuts (auto) Absolute Nucleated RBC Nucleated RBC % PT INR APTT Sodium Potassium Chloride Carbon Dioxide Anion Gap BUN Creatinine Estim Creat Clear Calc Estimated GFR Glucose POC Capillary Glucose Calcium Total Bilirubin AST ALT 20 Alkaline Phosphatase 83 Cancelled Troponin I < 0.012 Total Protein 8.1 Cancelled Albumin Cancelled Urine Color Urine Appearance Urine pH Ur Specific [place] Urine Protein Urine Glucose (UA) Urine Ketones Ur Blood (Man) Urine Nitrate Urine Bilirubin Urine Urobilinogen Leukocyte Esterase Rfl Salicylates Urine Opiates Screen Urine Methadone Screen Acetaminophen Ur Barbiturates Screen Ur Phencyclidine Scrn Ur Amphetamine Screen U Benzodiazepines Scrn Urine Cocaine Screen U Cannabinoids Screen Ethyl Alcohol 08/08/25 08/08/25 08/08/25 18:13 18:13 18:13 WBC RBC Hgb Hct MCV MCH MCHC RDW Plt Count MPV Immature Gran % (Auto) Neut % (Auto) Lymph % (Auto) [place] % (Auto) Eos % (Auto) Baso % (Auto) Lymph # (Auto) [place] # (Auto) Eos # (Auto) Baso # (Auto) Abs Immat Gran (auto) Absolute Neuts (auto) Absolute Nucleated RBC Nucleated RBC % PT INR APTT Sodium Potassium Chloride Carbon Dioxide Anion Gap BUN Creatinine Estim Creat Clear Calc Estimated GFR Glucose POC Capillary Glucose Calcium 10.0 Total Bilirubin 0.2 Cancelled AST 28 Cancelled ALT Cancelled Alkaline Phosphatase Troponin I Total Protein Albumin Urine Color Urine Appearance Urine pH Ur Specific [place] Urine Protein Urine Glucose (UA) Urine Ketones Ur Blood (Man) Urine Nitrate Urine Bilirubin Urine Urobilinogen Leukocyte Esterase Rfl Salicylates Urine Opiates Screen Urine Methadone Screen Acetaminophen Ur Barbiturates Screen Ur Phencyclidine Scrn Ur Amphetamine Screen U Benzodiazepines Scrn Urine Cocaine Screen U Cannabinoids Screen Ethyl Alcohol 08/08/25 08/08/25 08/08/25 18:13 18:13 18:13 WBC RBC Hgb Hct MCV MCH MCHC RDW Plt Count MPV Immature Gran % (Auto) Neut % (Auto) Lymph % (Auto) [place] % (Auto) Eos % (Auto) Baso % (Auto) Lymph # (Auto) [place] # (Auto) Eos # (Auto) Baso # (Auto) Abs Immat Gran (auto) Absolute Neuts (auto) Absolute Nucleated RBC Nucleated RBC % PT INR APTT Sodium Potassium Chloride Carbon Dioxide Anion Gap BUN Creatinine Estim Creat Clear Calc 66 Estimated GFR > 60 Cancelled Glucose 101 Cancelled POC Capillary Glucose Calcium Cancelled Total Bilirubin AST ALT Alkaline Phosphatase Troponin I Total Protein Albumin Urine Color Urine Appearance Urine pH Ur Specific [place] Urine Protein Urine Glucose (UA) Urine Ketones Ur Blood (Man) Urine Nitrate Urine Bilirubin Urine Urobilinogen Leukocyte Esterase Rfl Salicylates Urine Opiates Screen Urine Methadone Screen Acetaminophen Ur Barbiturates Screen Ur Phencyclidine Scrn Ur Amphetamine Screen U Benzodiazepines Scrn Urine Cocaine Screen U Cannabinoids Screen Ethyl Alcohol 08/08/25 08/08/25 08/08/25 18:13 18:13 18:13 WBC RBC Hgb Hct MCV MCH MCHC RDW Plt Count MPV Immature Gran % (Auto) Neut % (Auto) Lymph % (Auto) [place] % (Auto) Eos % (Auto) Baso % (Auto) Lymph # (Auto) [place] # (Auto) Eos # (Auto) Baso # (Auto) Abs Immat Gran (auto) Absolute Neuts (auto) Absolute Nucleated RBC Nucleated RBC % PT INR APTT Sodium Potassium Chloride Carbon Dioxide Anion Gap 12 BUN 21 H Cancelled Creatinine 1.23 Cancelled Estim Creat Clear Calc Cancelled Estimated GFR Glucose POC Capillary Glucose Calcium Total Bilirubin AST ALT Alkaline Phosphatase Troponin I Total Protein Albumin Urine Color Urine Appearance Urine pH Ur Specific [place] Urine Protein Urine Glucose (UA) Urine Ketones Ur Blood (Man) Urine Nitrate Urine Bilirubin Urine Urobilinogen Leukocyte Esterase Rfl Salicylates Urine Opiates Screen Urine Methadone Screen Acetaminophen Ur Barbiturates Screen Ur Phencyclidine Scrn Ur Amphetamine Screen U Benzodiazepines Scrn Urine Cocaine Screen U Cannabinoids Screen Ethyl Alcohol 08/08/25 08/08/25 08/08/25 18:13 18:13 18:13 WBC RBC Hgb Hct MCV MCH MCHC RDW Plt Count MPV Immature Gran % (Auto) Neut % (Auto) Lymph % (Auto) [place] % (Auto) Eos % (Auto) Baso % (Auto) Lymph # (Auto) [place] # (Auto) Eos # (Auto) Baso # (Auto) Abs Immat Gran (auto) Absolute Neuts (auto) Absolute Nucleated RBC Nucleated RBC % PT INR APTT Sodium Potassium 3.8 Chloride 102 Cancelled Carbon Dioxide 25 Cancelled Anion Gap Cancelled BUN Creatinine Estim Creat Clear Calc Estimated GFR Glucose POC Capillary Glucose Calcium Total Bilirubin AST ALT Alkaline Phosphatase Troponin I Total Protein Albumin Urine Color Urine Appearance Urine pH Ur Specific [place] Urine Protein Urine Glucose (UA) Urine Ketones Ur Blood (Man) Urine Nitrate Urine Bilirubin Urine Urobilinogen Leukocyte Esterase Rfl Salicylates Urine Opiates Screen Urine Methadone Screen Acetaminophen Ur Barbiturates Screen Ur Phencyclidine Scrn Ur Amphetamine Screen U Benzodiazepines Scrn Urine Cocaine Screen U Cannabinoids Screen Ethyl Alcohol 08/08/25 08/08/25 08/08/25 18:13 18:13 18:13 WBC RBC Hgb Hct MCV MCH MCHC RDW Plt Count MPV Immature Gran % (Auto) Neut % (Auto) Lymph % (Auto) [place] % (Auto) Eos % (Auto) Baso % (Auto) Lymph # (Auto) [place] # (Auto) Eos # (Auto) Baso # (Auto) Abs Immat Gran (auto) Absolute Neuts (auto) Absolute Nucleated RBC Nucleated RBC % PT INR 1.0 APTT 28.4 Cancelled Sodium 139 Cancelled Potassium Cancelled Chloride Carbon Dioxide Anion Gap BUN Creatinine Estim Creat Clear Calc Estimated GFR Glucose POC Capillary Glucose Calcium Total Bilirubin AST ALT Alkaline Phosphatase Troponin I Total Protein Albumin Urine Color Urine Appearance Urine pH Ur Specific [place] Urine Protein Urine Glucose (UA) Urine Ketones Ur Blood (Man) Urine Nitrate Urine Bilirubin Urine Urobilinogen Leukocyte Esterase Rfl Salicylates Urine Opiates Screen Urine Methadone Screen Acetaminophen Ur Barbiturates Screen Ur Phencyclidine Scrn Ur Amphetamine Screen U Benzodiazepines Scrn Urine Cocaine Screen U Cannabinoids Screen Ethyl Alcohol 08/08/25 08/08/25 08/08/25 18:13 18:13 18:05 WBC 7.4 RBC 4.98 Hgb 12.6 L D Hct 39.2 L MCV 78.7 L MCH 25.3 L MCHC 32.1 RDW 13.1 Plt Count 270 MPV 9.4 Immature Gran % (Auto) 0.5 Neut % (Auto) 55.2 Lymph % (Auto) 30.2 [place] % (Auto) 7.3 Eos % (Auto) 5.7 H Baso % (Auto) 1.1 Lymph # (Auto) 2.24 [place] # (Auto) 0.5 Eos # (Auto) 0.4 H Baso # (Auto) 0.1 Abs Immat Gran (auto) 0.04 H Absolute Neuts (auto) 4.1 Absolute Nucleated RBC 0.000 Nucleated RBC % 0.0 PT 13.5 Cancelled INR Cancelled APTT Sodium Potassium Chloride Carbon Dioxide Anion Gap BUN Creatinine Estim Creat Clear Calc Estimated GFR Glucose POC Capillary Glucose 143 H Calcium Total Bilirubin AST ALT Alkaline Phosphatase Troponin I Total Protein Albumin Urine Color Urine Appearance Urine pH Ur Specific [place] Urine Protein Urine Glucose (UA) Urine Ketones Ur Blood (Man) Urine Nitrate Urine Bilirubin Urine Urobilinogen Leukocyte Esterase Rfl Salicylates Urine Opiates Screen Urine Methadone Screen Acetaminophen Ur Barbiturates Screen Ur Phencyclidine Scrn Ur Amphetamine Screen U Benzodiazepines Scrn Urine Cocaine Screen U Cannabinoids Screen Ethyl Alcohol Discharge Plan Discharge Attending physician on discharge: Gissel Whalen Discharging Clinician: Gissel Whalen Anticipated Discharge Date/Time: 08/09/25 14:53 Patient Disposition: Home Activity: as tolerated Diet: as tolerated and regular Discharge Instructions: Discussed with patient and advised to stop Buspirone and Trazodone. Continue Seroquel and Amitriptyline for insomnia Patient Instructions: Antibiotic Form Patient Language: [place] Stand Alone Forms: General Discharge Information Follow-up/Referrals: Jill,MELISSA Moody [Primary Care Provider] Referral Note: F/u with PCP in 3-5 days Discharge Medications: Continued amitriptyline 50 mg tablet 100 mg PO BID gabapentin 300 mg capsule 300 mg PO TID hydroxyzine pamoate 100 mg capsule 100 mg PO QID PRN (Reason: Anxiety) paroxetine HCl 10 mg tablet 10 mg PO DAILY quetiapine 300 mg tablet 300 mg PO HS lisinopril 20 mg tablet 20 mg PO DAILY omeprazole 20 mg capsule,delayed release(DR/EC) 20 mg PO DAILY escitalopram oxalate 20 mg tablet 20 mg PO DAILY clonidine HCl 0.1 mg tablet Discontinued trazodone 100 mg tablet 200 mg PO HS buspirone 15 mg tablet 15 mg PO BID Date of admission: 08/08/25 21:22 Primary Care Provider: JillFransisco Admitting Provider: Paxton Chen Attending physician on admission: Paxton Chen Condition: Stable
== END 2025-08-09 16:14 | disposition home or self-care (01) ==
LOC: ANHED 18:35 → ANH3MEDSUR 22:42
PROVIDERS: Nurse Practitioner; Admitting Provider Family Medicine; Emergency Provider Student in an Organized Health Care Education/Training Program; PCP Physician Assistant; Visit Provider Internal Medicine
DX: R41.0 Disorientation, unspecified (principal); I10 Essential (primary) hypertension; Z87.891 Personal history of nicotine dependence; F12.90 Cannabis use, unspecified, uncomplicated; F10.11 Alcohol abuse, in remission
CPT/HCPCS: 36415; 70450; 70496; 70498; 71045; 80048; 80053; 80143; 80179; 80307; 81003; 82077; 82948; 84484; 85025; 85027; 85610; 85730; 93005; 96361; 96374; 99285; A9270; G0378; J3411; J7120; Q9967